=== PATIENT | female | born 2000 | race Caucasian/White ===

== ENCOUNTER 2018-11-24 08:08 | Inpatient (IN) | payer OTHER ==
[~2018-11-24 08:08] MED LIST: Bupivacaine 0.25% 10 ML SDV ONE
[2018-11-24] MEDS ORDERED: Nalbuphine 10 MG/1 ML Vial IVPUSH PRN (09:01)
[2018-11-24] MEDS ORDERED: Ondansetron 4 MG/2 ML SDV IVPUSH PRN ×2 (09:01→09:51)
[2018-11-24] MEDS ORDERED: Sodium Chloride 0.9% 10 ML Syringe FLUSH PRN (09:01)
[2018-11-24] MEDS ORDERED: Oxytocin/Lactated Ringers 10 UNIT/1,000 ML BAG IV SCH (09:15)
[2018-11-24] MEDS: Lactated Ringers 1,000 ML IV SCH ×5 (09:29→16:31)
[2018-11-24] MEDS ORDERED: fentaNYL 100 MCG/2 ML SDV ONE (09:50)
[2018-11-24] MEDS ORDERED: fentaNYL 100 MCG/2 ML SDV EPIDUR PRN (09:51)
[2018-11-24] MEDS ORDERED: fentaNYL/Bupivacaine in NS PF 2 MCG-0.125% 250 ML Premix EPIDUR PRN (09:51)
[2018-11-24] MEDS ORDERED: ePHEDrine 50 MG/ML SDV IVPUSH PRN (09:51)
--- NOTE | 2018-11-24 09:58 | PCM.PREANE ---
Preanesthetic Assessment - Anesthesia/Transfusion/Family Hx Anesthesia History: Prior Anesthesia Without Reaction Family History of Anesthesia Reaction: No Transfusion History: No Prior Transfusion(s) Intubation History: Unknown - Review of Systems General: No Symptoms Pulmonary: No Symptoms Cardiovascular: No Symptoms Gastrointestinal: No Symptoms (GERD), Nausea, Vomiting Neurological: No Symptoms (Motion sickness) Other: Reports: None - Physical Assessment NPO Status Date: 11/23/18 NPO Status Time: 20:00 Vital Signs: Last Vital Signs Temp 37.1 C 11/24/18 08:22 Pulse 59 L 11/24/18 08:22 Resp 16 11/24/18 08:22 BP 119/72 11/24/18 08:22 Pulse Ox 100 11/24/18 08:22 Height: 1.7 m Weight: 89.811 kg ASA Class: 2 Mental Status: Alert & Oriented x3 Airway Class: Mallampati = 2 Dentition: Reports: Normal Dentition, Caries Thyro-Mental Finger Breadths: 3 Mouth Opening Finger Breadths: 3 ROM/Head Extension: Full Lungs: Clear to Auscultation, Normal Respiratory Effort Cardiovascular: Regular Rate, Regular Rhythm, No Murmurs - Lab Values: Laboratory Last Values WBC 15.79 K/mm3 (3.98-10.04) H 11/24/18 09:19 RBC 4.38 M/mm3 (3.98-5.22) 11/24/18 09:19 Hgb 12.1 gm/dl (11.2-15.7) 11/24/18 09:19 Hct 37.3 % (34.1-44.9) 11/24/18 09:19 MCV 85.2 fl (79.4-94.8) 11/24/18 09:19 MCH 27.6 pg (25.6-32.2) 11/24/18 09:19 MCHC 32.4 g/dl (32.2-35.5) 11/24/18 09:19 RDW Std Deviation 41.0 fL (36.4-46.3) 11/24/18 09:19 Plt Count 269 K/mm3 (182-369) 11/24/18 09:19 MPV 9.7 fl (9.4-12.3) 11/24/18 09:19 Membrane Rupture Positive H 11/23/18 08:10 All labs reviewed and noted and within acceptable ranges to proceed with epidural. - Allergies Allergies/Adverse Reactions: Allergies Allergy/AdvReac Type Severity Reaction Status Date / Time No Known Allergies Allergy Verified 11/23/18 09:28 - Anesthesia Plan Pre-Op Medication Ordered: None - Acknowledgements Anesthesia Type Planned: Epidural Pt an Appropriate Candidate for the Planned Anesthesia: Yes Alternatives and Risks of Anesthesia Discussed w Pt/Guardian: Yes Pt/Guardian Understands and Agrees with Anesthesia Plan: Yes PreAnesthesia Questionnaire - HOME MEDS Home Medications: Home Meds Esomeprazole Magnesium [Nexium] 40 mg PO DAILY 11/23/18 [History] Vit No.130/Iron/FA [ Vitamins] 1 each PO DAILY 11/23/18 [ History] - CURRENT (IN HOUSE) MEDS Current Meds: Current Medications Lactated Ringer's (Ringers, Lactated) 1,000 mls @ 100 mls/hr IV ASDIRECTED OMAR Last Admin: 11/24/18 09:29 Dose: 100 mls/hr Oxytocin/Lactated Ringer's (Pitocin In Lr 10 Units/1,000 Ml) 10 unit in 1,000 mls @ 500 mls/hr IV .CONTINUOUS OMAR Oxytocin/Lactated Ringer's (Pitocin In Lr 10 Units/1,000 Ml) 10 unit in 1,000 mls @ 12 mls/hr IV TITRATE OMAR; Protocol Nalbuphine HCl (Nubain) 10 mg IVPUSH Q2H PRN PRN Reason: Pain Ondansetron HCl (Zofran) 4 mg IVPUSH Q4H PRN PRN Reason: Nausea/Vomiting Sodium Chloride (Saline Flush) 10 ml FLUSH ASDIRECTED PRN PRN Reason: Keep Vein Open
--- NOTE | 2018-11-24 11:27 | PCM.LDHP ---
L&D History of Present Illness - General Date of Service: 11/24/18 Admit Problem/Dx: Patient Status Order with Admit Dx/Problem 11/24/18 09:01 Patient Status [ADT] Routine Admission Diagnosis/Problem Admission Diagnosis/Problem Spontaneous rupture of membranes Source of Information: Patient History Limitations: Reports: No Limitations - History of Present Illness Introduction:: Patient is a 18 y/o at 38 6/7 wks who presents with contractions / SROM. Contractions started in early AM. Thinks ROM was around 0630. Contractions rated as a 6/10 on admission - Related Data Allergies/Adverse Reactions: Allergies Allergy/AdvReac Type Severity Reaction Status Date / Time No Known Allergies Allergy Verified 11/23/18 09:28 Home Medications: Home Meds Esomeprazole Magnesium [Nexium] 40 mg PO DAILY 11/23/18 [History] Vit No.130/Iron/FA [ Vitamins] 1 each PO DAILY 11/23/18 [ History] Past Medical History [employer] History: Reports: : 1 Para: 0 LMP (Approximate): - Past Surgical History HEENT Surgical History: Reports: Tonsillectomy Musculoskeletal Surgical History: Reports: Other (See Below) (right thumb) Social & Family History - Family History Family Medical History: Noncontributory - Tobacco Use Smoking Status *Q: Never Smoker Second Hand Smoke Exposure: No - Caffeine Use Caffeine Use: Reports: None - Alcohol Use Alcohol Use History: No - Recreational Drug Use Recreational Drug Use: No H&P Review of Systems - Review of Systems: Review Of Systems: See Below General: Reports: No Symptoms Pulmonary: Reports: No Symptoms Cardiovascular: Reports: No Symptoms Gastrointestinal: Reports: No Symptoms Genitourinary: Reports: No Symptoms Musculoskeletal: Reports: No Symptoms Psychiatric: Reports: No Symptoms Neurological: Reports: No Symptoms L&D Exam - Exam Exam: See Below - Vital Signs Vital Signs: Last Vital Signs Temp 37.1 C 11/24/18 08:22 Pulse 59 L 11/24/18 08:22 Resp 16 11/24/18 08:22 BP 119/72 11/24/18 08:22 Pulse Ox 100 11/24/18 08:22 Weight: 89.811 kg - OB Specific Contraction Intensity: Moderate Movement: Active Heart Tones: Present Heart Tones per Min: 140 Presentation: Vertex - Mccray Score Mccray Score Cervix Position: Midposition Mccray Score Consistency: Soft Mccray Score Effacement: 51-70% Mccray Score Dilation: 1-2 cm Mccray Score Infant's Station: -2 Mccray Score Total: 7 - Exam General: Alert, Oriented, Cooperative Lungs: Clear to Auscultation, Normal Respiratory Effort Cardiovascular: Regular Rate, Regular Rhythm GI/Abdominal Exam: Soft, Non-Tender Genitourinary: Normal external exam Extremities: Normal Inspection Skin: Warm, Dry, Intact - Patient Data Lab Results Last 24 hrs: Laboratory Results - last 24 hr 11/23/18 11/24/18 11/24/18 Range/Units 08:10 09: 09:19 WBC 15.79 H (3.98-10.04) K/mm3 RBC 4.38 (3.98-5.22) M/mm3 Hgb 12.1 (11.2-15.7) gm/dl Hct 37.3 (34.1-44.9) % MCV 85.2 (79.4-94.8) fl MCH 27.6 (25.6-32.2) pg MCHC 32.4 (32.2-35.5) g/dl RDW Std Deviation 41.0 (36.4-46.3) fL Plt Count 269 (182-369) K/mm3 MPV 9.7 (9.4-12.3) fl Membrane Rupture Positive H Blood Type O POSITIVE Gel Antibody Screen Negative Result Diagrams: 11/24/18 09:19 - Problem List (1) 38 weeks gestation of SNOMED Code(s): 53871583 ICD Code: Z3A.38 - 38 WEEKS GESTATION OF Status: Acute Current Visit: Yes (2) SROM (spontaneous rupture of membranes) SNOMED Code(s): 768266018 ICD Code: [id number] - Status: Acute Current Visit: Yes Problem List Initiated/Reviewed/Updated: Yes Orders Last 24hrs: Active Orders 24 hr Category Date Time Status Patient Status [ADT] Routine ADT 11/24/18 09:01 Active Activity as Tolerated [RC] PFP Care 11/24/18 09:01 Active Communication Order [RC] ASDIRECTED Care 11/24/18 09:01 Active Heart Tones [RC] ASDIRECTED Care 11/24/18 09:01 Active Non Stress Test [RC] PER UNIT ROUTINE Care 11/24/18 09:01 Active Notify Provider [RC] ASDIRECTED Care 11/24/18 09:51 Active Notify Provider [RC] PFP Care 11/24/18 09:01 Active Notify Provider [RC] PRN Care 11/24/18 09:01 Active Oxygen Therapy [RC] ASDIRECTED Care 11/24/18 09:51 Active Peripheral IV Care [RC] . DIRECTED Care 11/24/18 09:01 Active Pulse Oximetry [RC] ASDIRECTED Care 11/24/18 09:51 Active Vital Signs [RC] PER UNIT ROUTINE Care 11/24/18 09:01 Active Regular Diet [DIET] Diet 11/24/18 Breakfast Active RAPID PLASMA REAGIN,RPR [CHEM] Routine Lab 11/24/18 09:19 Received Bupivicaine/fentaNYL/NS [fentaNYL/Bupivacaine/NS 2 MCG- Med 11/24/18 09:51 Active 0.125% 250 ML] 2 mcg EPIDUR CONTINUOUS PRN Lactated Ringers [Ringers, Lactated] 1,000 ml Med 11/24/18 09:15 Active IV ASDIRECTED Nalbuphine [Nubain] Med 11/24/18 09:01 Active 10 mg IVPUSH Q2H PRN Ondansetron [Zofran] Med 11/24/18 09:51 Active 4 mg IVPUSH ONETIME PRN Ondansetron [Zofran] Med 11/24/18 09:01 Active 4 mg IVPUSH Q4H PRN Oxytocin/Lactated Ringers [Pitocin in LR 10 Units/1,000 Med 11/24/18 09:15 Active ML] 10 unit in 1,000 ml IV .CONTINUOUS Oxytocin/Lactated Ringers [Pitocin in LR 10 Units/1,000 Med 11/24/18 09:15 Active ML] 10 unit in 1,000 ml IV TITRATE Sodium Chloride 0.9% [Saline Flush] Med 11/24/18 09:01 Active 10 ml FLUSH ASDIRECTED PRN ePHEDrine [ePHEDrine sulfate] Med 11/24/18 09:51 Active 5 mg IVPUSH ASDIRECTED PRN fentaNYL [Sublimaze] Med 11/24/18 09:51 Active 100 mcg EPIDUR Q3H PRN Electronic Heart Tones Ext w TOCO [WOMSER] Oth 11/24/18 09:01 Ordered Routine Electronic Heart Tones Internal [WOMSER] Per Unit Oth 11/24/18 09:01 Ordered Routine Peripheral IV Insertion Adult [OM.PC] Routine Oth 11/24/18 09:01 Ordered Resuscitation Status Routine Resus Stat 11/24/18 09:01 Ordered Medication Orders Ephedrine Sulfate (Ephedrine Sulfate) 5 mg IVPUSH ASDIRECTED PRN PRN Reason: Hypotension Fentanyl (Sublimaze) 100 mcg EPIDUR Q3H PRN PRN Reason: Pain Last Admin: 11/24/18 09:54 Dose: 100 mcg Fentanyl/Bupivacaine HCl (Fentanyl/Bupivacaine/Ns 2 Mcg-0.125% 250 Ml) 2 mcg EPIDUR CONTINUOUS PRN PRN Reason: Pain Last Admin: 11/24/18 09:58 Dose: 2 mcg Lactated Ringer's (Ringers, Lactated) 1,000 mls @ 100 mls/hr IV ASDIRECTED OMAR Last Admin: 11/24/18 10:02 Dose: 100 mls/hr Infusion: 11/24/18 10:02 Dose: 100 mls/hr Admin: 11/24/18 09:29 Dose: 100 mls/hr Oxytocin/Lactated Ringer's (Pitocin In Lr 10 Units/1,000 Ml) 10 unit in 1,000 mls @ 500 mls/hr IV .CONTINUOUS OMAR Oxytocin/Lactated Ringer's (Pitocin In Lr 10 Units/1,000 Ml) 10 unit in 1,000 mls @ 12 mls/hr IV TITRATE OMAR; Protocol Nalbuphine HCl (Nubain) 10 mg IVPUSH Q2H PRN PRN Reason: Pain Ondansetron HCl (Zofran) 4 mg IVPUSH Q4H PRN PRN Reason: Nausea/Vomiting Ondansetron HCl (Zofran) 4 mg IVPUSH ONETIME PRN PRN Reason: Nausea/Vomiting Sodium Chloride (Saline Flush) 10 ml FLUSH ASDIRECTED PRN PRN Reason: Keep Vein Open Assessment/Plan Comment:: * Labs ordered * GBS negative, no need for antibiotics * Pain management per patient preference, has already received epidural * 1 cm on admission, will start pitocin as needed for augmentation * Anticipate
[2018-11-24] MEDS: Oxytocin/Lactated Ringers 10 UNIT/1,000 ML BAG IV SCH ×2 (11:30→16:57)
[2018-11-24] MEDS ORDERED: Ampicillin 2 GM AdvVial IV ONE (15:55)
[2018-11-24] MEDS ORDERED: Sodium Chloride 0.9% 100 ML ONE (15:55)
[2018-11-24] MEDS ORDERED: Ampicillin 2 GM in Sodium Chloride 0.9% 100 ML IV ONE (16:00)
[2018-11-24] MEDS ORDERED: Acetaminophen 325 MG Tab PO ONE (16:13)
[2018-11-24] MEDS ORDERED: Gentamicin 110 MG in Sodium Chloride 0.9% 100 ML IV SCH (16:30)
--- NOTE | 2018-11-24 19:29 | PCM.DEL ---
L & D Note - General Info Date of Service: 11/24/18 - Delivery Note Labor: Augmented by Oxytocin Delivery Outcome: Livebirth Delivery Method: Spontaneous Vaginal Delivery-Single Delivery Mode: Spontaneous Presentation: Left Occiput Anterior (JERED) Nuchal Cord: Present, Reduced Anesthesia Type: Epidural Amniotic Fluid Description: Clear Episiotomy Type: None Laceration: 2nd Degree, Perineal Suture type: Vicryl Suture size: 2-0 Placenta: Intact, Spontaneous Cord: 3 Vessels Estimated Blood Loss: 200 Resuscitation Needed: Yes [place]: Bulb Syringe, Stimulated, Warmed, [place] Used, Warmer Used Delivery Comments (Free Text/Narrative):: Patient found to be complete and began pushing. With maternal pushing effort head delivered from an JERED presentation. Nuchal cord present and reduced. With gentle downward traction the shoulders and body delivered. Infant placed on maternal abdomen. Cord clamped and cut. Cord blood obtained. Placenta allowed time to separate and expelled intact. Inspection of perineum showed a 2nd degree laceration which was repaired with a 2-0 vicryl in the typical fashion - General Info Date of Service: 11/24/18 - Patient Data Vitals - Most Recent: Last Vital Signs Temp 37.1 C 11/24/18 08:22 Pulse 59 L 11/24/18 08:22 Resp 16 11/24/18 08:22 BP 119/72 11/24/18 08:22 Pulse Ox 100 11/24/18 08:22 Weight - Most Recent: 89.811 kg I&O - Last 24 Hours: Intake & Output 11/24/18 11/24/18 11/24/18 06:59 14:59 22:59 Intake Total 1999 Balance 1999 - Problem List & Annotations (1) Chorioamnionitis SNOMED Code(s): 43301969 Code(s): O41.1290 - CHORIOAMNIONITIS, UNSP TRIMESTER, NOT APPLICABLE OR UNSP Status: Acute Current Visit: Yes Qualifiers: Fetus number: single or unspecified fetus Trimester: third trimester Qualified Code(s): O41.1230 - Chorioamnionitis, third trimester, not applicable or unspecified (2) Vaginal delivery SNOMED Code(s): 649608613 Code(s): O80 - ENCOUNTER FOR FULL-TERM UNCOMPLICATED DELIVERY Status: Acute Current Visit: Yes (3) 38 weeks gestation of SNOMED Code(s): 35283654 Code(s): Z3A.38 - 38 WEEKS GESTATION OF Status: Acute Current Visit: Yes (4) SROM (spontaneous rupture of membranes) SNOMED Code(s): 360049420 Code(s): AUK6435 - Status: Acute Current Visit: Yes - Problem List Review Problem List Initiated/Reviewed/Updated: Yes - My Orders Last 24 Hours: My Active Orders 11/24/18 09:01 Activity as Tolerated [RC] PFP Communication Order [RC] ASDIRECTED Heart Tones [RC] ASDIRECTED Notify Provider [RC] PFP Notify Provider [RC] PRN Peripheral IV Care [RC] . DIRECTED Vital Signs [RC] PER UNIT ROUTINE Nalbuphine [Nubain] 10 mg IVPUSH Q2H PRN Ondansetron [Zofran] 4 mg IVPUSH Q4H PRN Sodium Chloride 0.9% [Saline Flush] 10 ml FLUSH ASDIRECTED PRN Electronic Heart Tones Ext w TOCO [WOMSER] Routine Electronic Heart Tones Internal [WOMSER] Per Unit Routine Peripheral IV Insertion Adult [OM.PC] Routine Resuscitation Status Routine 11/24/18 09:15 Lactated Ringers [Ringers, Lactated] 1,000 ml IV ASDIRECTED Oxytocin/Lactated Ringers [Pitocin in LR 10 Units/1,000 ML] 10 unit in 1,000 ml IV .CONTINUOUS Oxytocin/Lactated Ringers [Pitocin in LR 10 Units/1,000 ML] 10 unit in 1,000 ml IV TITRATE 11/24/18 09:19 RAPID PLASMA REAGIN,RPR [CHEM] Routine 11/24/18 12:25 Admission Status [Patient Status] [ADT] Routine 11/24/18 19:27 Patient Status Manage Transfer [TRANSFER] Routine 11/24/18 Breakfast Regular Diet [DIET] - Assessment Assessment:: 18 y/o G1 now P1001 PPD#0 from at 38 6/7 wks - Plan Plan:: * Discontinue antibiotics, monitor closely for continued signs of infection * Routine cares * Encourage breast feeding * Discharge home in 2 days
[2018-11-24] MEDS ORDERED: Docusate Sodium 100 MG Cap PO PRN (20:27)
[2018-11-24] MEDS ORDERED: Witch Hazel Medicated Pads 40/Jar TOP PRN (20:27)
[2018-11-24] MEDS ORDERED: Acetaminophen 325 MG Tab PO PRN (20:27)
[2018-11-24] MEDS ORDERED: Benzocaine/Menthol 20%-0.5% Spray 56 GM Canister TOP PRN (20:27)
[2018-11-24] MEDS: Ibuprofen 600 MG Tab PO PRN (21:00)
--- NOTE | 2018-11-24 21:00 | PCM.SN ---
- Free Text/Narrative Note: 1300 Received call from nursing. Having some repetitive variable decelerations. In to assess patient. a bout 4 cm and 90% effaced. IUPC placed. Will start amnioinfusion. Patient agrees to plan of care. Damaris Fitzgerald MD
--- NOTE | 2018-11-24 21:02 | PCM.SN ---
- Free Text/Narrative Note: 1600 Received call from nursing patient now febrile. Will start Amp and Gentamicin for chorioamnionitis. Variables present, but intermittent. Currently 7 cm. Will adjust pitocin as able. Damaris Fitzgerald MD
[2018-11-25] MEDS: Ibuprofen 600 MG Tab PO PRN ×3 (03:05→20:20)
--- NOTE | 2018-11-25 07:06 | PCM.PNPP ---
- General Info Date of Service: 11/25/18 Functional Status: Reports: Pain Controlled, Tolerating Diet, Ambulating, Urinating - Review of Systems General: Reports: No Symptoms Pulmonary: Reports: No Symptoms Cardiovascular: Reports: No Symptoms Gastrointestinal: Reports: No Symptoms Genitourinary: Reports: No Symptoms Musculoskeletal: Reports: No Symptoms Neurological: Reports: No Symptoms - Patient Data Vital Signs - Most Recent: Last Vital Signs Temp 36.8 C 11/25/18 03:05 Pulse 75 11/25/18 03:05 Resp 16 11/25/18 03:05 BP 115/63 11/25/18 03:05 Pulse Ox 96 11/25/18 03:05 Weight - Most Recent: 89.811 kg I&O - Last 24 Hours: Intake & Output 11/24/18 11/25/18 11/25/18 22:59 06:59 14:59 Intake Total 1000 Balance 1000 Lab Results - Last 24 Hours: Laboratory Results - last 24 hr 11/23/18 11/24/18 11/24/18 Range/Units 08:10 09:19 09:19 WBC 15.79 H (3.98-10.04) K/mm3 RBC 4.38 (3.98-5.22) M/mm3 Hgb 12.1 (11.2-15.7) gm/dl Hct 37.3 (34.1-44.9) % MCV 85.2 (79.4-94.8) fl MCH 27.6 (25.6-32.2) pg MCHC 32.4 (32.2-35.5) g/dl RDW Std Deviation 41.0 (36.4-46.3) fL Plt Count 269 (182-369) K/mm3 MPV 9.7 (9.4-12.3) fl Membrane Rupture Positive H RPR Non-reactive (NONREACTIVE) Blood Type Gel Antibody Screen 11/24/18 Range/Units 09:19 WBC (3.98-10.04) K/mm3 RBC (3.98-5.22) M/mm3 Hgb (11.2-15.7) gm/dl Hct (34.1-44.9) % MCV (79.4-94.8) fl MCH (25.6-32.2) pg MCHC (32.2-35.5) g/dl RDW Std Deviation (36.4-46.3) fL Plt Count (182-369) K/mm3 MPV (9.4-12.3) fl Membrane Rupture RPR (NONREACTIVE) Blood Type O POSITIVE Gel Antibody Screen Negative Med Orders - Current: Current Medications Acetaminophen (Tylenol) 650 mg PO Q4H PRN PRN Reason: mild pain or fever Benzocaine/Menthol (Dermoplast Pain Relief [place]) 0 gm TOP ASDIRECTED PRN PRN Reason: Perineal Comfort Measure Last Admin: 11/24/18 22:06 Dose: 1 canister Docusate Sodium (Colace) 100 mg PO BID PRN PRN Reason: Constipation Ibuprofen (Motrin) 600 mg PO Q6H PRN PRN Reason: Mild pain or fever Last Admin: 11/25/18 03:05 Dose: 600 mg Witch Isis (Tucks) 1 pad TOP ASDIRECTED PRN PRN Reason: Perineal Comfort Measure Last Admin: 11/24/18 22:06 Dose: 1 container Discontinued Medications Acetaminophen (Tylenol) 975 mg PO NOW ONE Stop: 11/24/18 16:14 Last Admin: 11/24/18 16:23 Dose: 975 mg Ampicillin Sodium (Ampicillin) Confirm Administered Dose 2 gm IV .STK-MED ONE Stop: 11/24/18 15:56 Last Admin: 11/24/18 16:00 Dose: 2 gm Ephedrine Sulfate (Ephedrine Sulfate) 5 mg IVPUSH ASDIRECTED PRN PRN Reason: Hypotension Fentanyl (Sublimaze) 100 mcg EPIDUR Q3H PRN PRN Reason: Pain Last Admin: 11/24/18 09:54 Dose: 100 mcg Fentanyl (Sublimaze) Confirm Administered Dose 100 mcg .ROUTE .STK-MED ONE Stop: 11/24/18 09:51 Last Admin: 11/25/18 00:28 Dose: Not Given Fentanyl/Bupivacaine HCl (Fentanyl/Bupivacaine/Ns 2 Mcg-0.125% 250 Ml) 2 mcg EPIDUR CONTINUOUS PRN PRN Reason: Pain Last Admin: 11/24/18 09:58 Dose: 2 mcg Lactated Ringer's (Ringers, Lactated) 1,000 mls @ 100 mls/hr IV ASDIRECTED OMAR Last Admin: 11/24/18 16:31 Dose: 100 mls/hr Oxytocin/Lactated Ringer's (Pitocin In Lr 10 Units/1,000 Ml) 10 unit in 1,000 mls @ 500 mls/hr IV .CONTINUOUS OMAR Oxytocin/Lactated Ringer's (Pitocin In Lr 10 Units/1,000 Ml) 10 unit in 1,000 mls @ 12 mls/hr IV TITRATE OMAR; Protocol Last Titration: 11/24/18 17:18 Dose: 4 munits/min, 24 mls/hr Ampicillin Sodium 2 gm/ Sodium (Chloride) 100 mls @ 200 mls/hr IV NOW ONE Stop: 11/24/18 16:29 Last Admin: 11/24/18 16:00 Dose: 200 mls/hr Sodium Chloride (Normal Saline) Confirm Administered Dose 100 mls @ as directed .ROUTE .STK-MED ONE Stop: 11/24/18 15:56 Last Admin: 11/24/18 16:30 Dose: Not Given Gentamicin Sulfate 450 mg/ (Sodium Chloride) 111.25 mls @ 200 mls/hr IV ONETIME ONE Stop: 11/24/18 16:45 Last Admin: 11/24/18 16:39 Dose: 200 mls/hr Gentamicin Sulfate 110 mg/ (Sodium Chloride) 102.75 mls @ 205.5 mls/hr IV Q8H OMAR Nalbuphine HCl (Nubain) 10 mg IVPUSH Q2H PRN PRN Reason: Pain Ondansetron HCl (Zofran) 4 mg IVPUSH Q4H PRN PRN Reason: Nausea/Vomiting Ondansetron HCl (Zofran) 4 mg IVPUSH ONETIME PRN PRN Reason: Nausea/Vomiting Sodium Chloride (Saline Flush) 10 ml FLUSH ASDIRECTED PRN PRN Reason: Keep Vein Open - Interaction Disposition, : in Room with Family Infant Interaction: Holding Infant Infant Feeding: Attempted ; Nursed Fair/Poor Support Person: Significant Other - Recovery Exam Fundal Tone: Firm Fundal Level: At Umbilicus Fundal Placement: Midline Lochia Amount: Small Lochia Color: Rubra/Red Perineum Description: Other (see below) Other Perinuem Description: 2nd degree with repair Episiotomy/Laceration: Approximated Bladder Status: Voiding Urinary Elimination: Voided - Exam General: Alert, Oriented, Cooperative GI/Abdominal Exam: Soft, Non-Tender Extremities: Normal Inspection Skin: Warm, Dry, Intact - Problem List & Annotations (1) Chorioamnionitis SNOMED Code(s): 79756281 Code(s): O41.1290 - CHORIOAMNIONITIS, UNSP TRIMESTER, NOT APPLICABLE OR UNSP Status: Acute Current Visit: Yes Qualifiers: Fetus number: single or unspecified fetus Trimester: third trimester Qualified Code(s): O41.1230 - Chorioamnionitis, third trimester, not applicable or unspecified (2) Vaginal delivery SNOMED Code(s): 823474035 Code(s): O80 - ENCOUNTER FOR FULL-TERM UNCOMPLICATED DELIVERY Status: Acute Current Visit: Yes (3) 38 weeks gestation of SNOMED Code(s): 42062744 Code(s): Z3A.38 - 38 WEEKS GESTATION OF Status: Acute Current Visit: Yes (4) SROM (spontaneous rupture of membranes) SNOMED Code(s): 279387924 Code(s): XOW0250 - Status: Acute Current Visit: Yes - Problem List Review Problem List Initiated/Reviewed/Updated: Yes - My Orders Last 24 Hours: My Active Orders 11/24/18 09:01 Activity as Tolerated [RC] PFP Communication Order [RC] ASDIRECTED Heart Tones [RC] ASDIRECTED Notify Provider [RC] PFP Notify Provider [RC] PRN Vital Signs [RC] PER UNIT ROUTINE Resuscitation Status Routine 11/24/18 20:27 Activity as Tolerated [RC] PER UNIT ROUTINE Vital Signs [RC] 09,15,21,03 Acetaminophen [Tylenol] 650 mg PO Q4H PRN Benzocaine/Menthol [Dermoplast Pain Relief [place]] See Dose Instructions TOP ASDIRECTED PRN Docusate Sodium [Colace] 100 mg PO BID PRN Ibuprofen [Motrin] 600 mg PO Q6H PRN Witch Isis [Tucks] 1 pad TOP ASDIRECTED PRN Assess Lochia [WOMSER] Per Unit Routine Assess Uterine Involution [WOMSER] Per Unit Routine Breast Pump [WOMSER] Per Unit Routine Heat Therapy [OM.PC] PRN Ice Therapy [OM.PC] Per Unit Routine Perineal Care [OM.PC] Per Unit Routine Peripheral IV Discontinue [OM.PC] Routine Sitz Bath [OM.PC] Per Unit Routine 10/16/19 Dinner Regular Diet [DIET] 11/25/18 20:27 Heat Therapy [OM.PC] PRN - Assessment Assessment:: 18 y/o G1 now P1001 PPD#1 from at 38 6/7 wks - Plan Plan:: * Afebrile overnight. Doing well * Routine cares * Encourage breast feeding * Discharge home tomorrow
--- NOTE | 2018-11-25 08:15 | PCM48HPAN ---
Post Anesthesia Note - EVALUATION WITHIN 48HRS OF ANESTHETIC Vital Signs in Normal Range: Yes Patient Participated in Evaluation: Yes Respiratory Function Stable: Yes Airway Patent: Yes Cardiovascular Function Stable: Yes Hydration Status Stable: Yes Pain Control Satisfactory: Yes Nausea and Vomiting Control Satisfactory: Yes Mental Status Recovered: Yes Vital Signs: Last Vital Signs Temp 36.8 C 11/25/18 03:05 Pulse 75 11/25/18 03:05 Resp 16 11/25/18 03:05 BP 115/63 11/25/18 03:05 Pulse Ox 96 11/25/18 03:05 - COMMENTS/OBSERVATIONS Free Text/Narrative:: Tiarra is up walkin around this morning. She does have some back soreness and rates it as mild. She has no further questions or concerns at this time.
--- NOTE | 2018-11-26 09:01 | PCM.PNPP ---
- General Info Date of Service: 11/26/18 Functional Status: Reports: Pain Controlled, Tolerating Diet, Ambulating, Urinating - Review of Systems General: Reports: No Symptoms Pulmonary: Reports: No Symptoms Cardiovascular: Reports: No Symptoms Gastrointestinal: Reports: No Symptoms Genitourinary: Reports: No Symptoms Musculoskeletal: Reports: No Symptoms Neurological: Reports: No Symptoms - Patient Data Vital Signs - Most Recent: Last Vital Signs Temp 36.7 C 11/25/18 21:45 Pulse 73 11/26/18 02:21 Resp 14 11/26/18 02:21 BP 124/78 11/26/18 02:21 Pulse Ox 97 11/26/18 02:21 Weight - Most Recent: 89.811 kg Med Orders - Current: Current Medications Acetaminophen (Tylenol) 650 mg PO Q4H PRN PRN Reason: mild pain or fever Benzocaine/Menthol (Dermoplast Pain Relief [place]) 0 gm TOP ASDIRECTED PRN PRN Reason: Perineal Comfort Measure Last Admin: 11/24/18 22:06 Dose: 1 canister Docusate Sodium (Colace) 100 mg PO BID PRN PRN Reason: Constipation Last Admin: 11/25/18 15:55 Dose: 100 mg Ibuprofen (Motrin) 600 mg PO Q6H PRN PRN Reason: Mild pain or fever Last Admin: 11/25/18 20:20 Dose: 600 mg Witch Isis (Tucks) 1 pad TOP ASDIRECTED PRN PRN Reason: Perineal Comfort Measure Last Admin: 11/24/18 22:06 Dose: 1 container Discontinued Medications Acetaminophen (Tylenol) 975 mg PO NOW ONE Stop: 11/24/18 16:14 Last Admin: 11/24/18 16:23 Dose: 975 mg Ampicillin Sodium (Ampicillin) Confirm Administered Dose 2 gm IV .STK-MED ONE Stop: 11/24/18 15:56 Last Admin: 11/24/18 16:00 Dose: 2 gm Bupivacaine HCl (Sensorcaine-Mpf 0.25%) 10 ml .ROUTE .STK-MED ONE Stop: 11/24/18 00:01 Ephedrine Sulfate (Ephedrine Sulfate) 5 mg IVPUSH ASDIRECTED PRN PRN Reason: Hypotension Fentanyl (Sublimaze) 100 mcg EPIDUR Q3H PRN PRN Reason: Pain Last Admin: 11/24/18 09:54 Dose: 100 mcg Fentanyl (Sublimaze) Confirm Administered Dose 100 mcg .ROUTE .[facility] ONE Stop: 11/24/18 09:51 Last Admin: 11/25/18 00:28 Dose: Not Given Fentanyl/Bupivacaine HCl (Fentanyl/Bupivacaine/Ns 2 Mcg-0.125% 250 Ml) 2 mcg EPIDUR CONTINUOUS PRN PRN Reason: Pain Last Admin: 11/24/18 09:58 Dose: 2 mcg Lactated Ringer's (Ringers, Lactated) 1,000 mls @ 100 mls/hr IV ASDIRECTED OMAR Last Admin: 11/24/18 16:31 Dose: 100 mls/hr Oxytocin/Lactated Ringer's (Pitocin In Lr 10 Units/1,000 Ml) 10 unit in 1,000 mls @ 500 mls/hr IV .CONTINUOUS OMAR Oxytocin/Lactated Ringer's (Pitocin In Lr 10 Units/1,000 Ml) 10 unit in 1,000 mls @ 12 mls/hr IV TITRATE OMAR; Protocol Last Titration: 11/24/18 17:18 Dose: 4 munits/min, 24 mls/hr Ampicillin Sodium 2 gm/ Sodium (Chloride) 100 mls @ 200 mls/hr IV NOW ONE Stop: 11/24/18 16:29 Last Admin: 11/24/18 16:00 Dose: 200 mls/hr Sodium Chloride (Normal Saline) Confirm Administered Dose 100 mls @ as directed .[facility]TE [facility] ONE Stop: 11/24/18 15:56 Last Admin: 11/24/18 16:30 Dose: Not Given Gentamicin Sulfate 450 mg/ (Sodium Chloride) 111.25 mls @ 200 mls/hr IV ONETIME ONE Stop: 11/24/18 16:45 Last Admin: 11/24/18 16:39 Dose: 200 mls/hr Gentamicin Sulfate 110 mg/ (Sodium Chloride) 102.75 mls @ 205.5 mls/hr IV Q8H OMAR Nalbuphine HCl (Nubain) 10 mg IVPUSH Q2H PRN PRN Reason: Pain Ondansetron HCl (Zofran) 4 mg IVPUSH Q4H PRN PRN Reason: Nausea/Vomiting Ondansetron HCl (Zofran) 4 mg IVPUSH ONETIME PRN PRN Reason: Nausea/Vomiting Sodium Chloride (Saline Flush) 10 ml FLUSH ASDIRECTED PRN PRN Reason: Keep Vein Open - Interaction Disposition, : [place] in Room with Family Interaction: Holding Infant Feeding: Attempted ; Nursed Fair/Poor Support Person: Significant Other - Recovery Exam Fundal Tone: Firm Fundal Level: 1 Fingerbreadths Below Umbilicus Fundal Placement: Midline Lochia Amount: Small Lochia Color: Rubra/Red Perineum Description: Other (see below) Other Perinuem Description: 2nd degree with repair Episiotomy/Laceration: Approximated Bladder Status: Voiding Urinary Elimination: Voided - Exam General: Alert, Oriented, Cooperative GI/Abdominal Exam: Soft, Non-Tender Extremities: Normal Inspection Skin: Warm, Dry, Intact - Problem List & Annotations (1) 38 weeks gestation of SNOMED Code(s): 68594002 Code(s): Z3A.38 - 38 WEEKS GESTATION OF Status: Acute Current Visit: Yes (2) SROM (spontaneous rupture of membranes) SNOMED Code(s): 250583185 Code(s): RLF6552 - Status: Acute Current Visit: Yes (3) Chorioamnionitis SNOMED Code(s): 40520557 Code(s): O41.1290 - CHORIOAMNIONITIS, UNSP TRIMESTER, NOT APPLICABLE OR UNSP Status: Acute Current Visit: Yes Qualifiers: Fetus number: single or unspecified fetus Trimester: third trimester Qualified Code(s): O41.1230 - Chorioamnionitis, third trimester, not applicable or unspecified (4) Vaginal delivery SNOMED Code(s): 257195296 Code(s): O80 - ENCOUNTER FOR FULL-TERM UNCOMPLICATED DELIVERY Status: Acute Current Visit: Yes - Problem List Review Problem List Initiated/Reviewed/Updated: Yes - My Orders Last 24 Hours: My Active Orders 11/25/18 20:27 Heat Therapy [OM.PC] PRN - Assessment Assessment:: 18 y/o G1 now P1001 PPD#2 from at 38 6/7 wks - Plan Plan:: * Routine cares * Encourage breast feeding * Discharge today, although patient will board with baby who got started on IV antibiotics yesterday
--- NOTE | 2018-11-26 09:06 | PCM.DCSUM1 ---
Discharge Summary - Discharge Data Discharge Date: 11/26/18 Discharge Disposition: Home, Self-Care 01 Condition: Good - Referral to Home Health Primary Care Physician: Damaris Fitzgerald MD - Discharge Diagnosis/Problem(s) (1) 38 weeks gestation of SNOMED Code(s): 93792690 ICD Code: Z3A.38 - 38 WEEKS GESTATION OF Status: Acute (2) SROM (spontaneous rupture of membranes) SNOMED Code(s): 682037805 ICD Code: [id number] - Status: Acute (3) Chorioamnionitis SNOMED Code(s): 42187027 ICD Code: O41.1290 - CHORIOAMNIONITIS, UNSP TRIMESTER, NOT APPLICABLE OR UNSP Status: Acute Qualifiers: Fetus number: single or unspecified fetus Trimester: third trimester Qualified Code(s): O41.1230 - Chorioamnionitis, third trimester, not applicable or unspecified (4) Vaginal delivery SNOMED Code(s): 869118169 ICD Code: O80 - ENCOUNTER FOR FULL-TERM UNCOMPLICATED DELIVERY Status: Acute - Patient Summary/Data Complications: None Consults: None Recommended Follow-up Testing/Procedures: [address] Fitzgerald [facility] Course: 18 y/o at 38 6/7 wks presented with SROM. Augmentation with pitocin done. With augmentation she did have stretches of variable decelerations. these were managed with IUPC/amnioinfusion. Made good change to complete dilation. At end of labor course did develop a fever and so was given IV gent and ampicillin. She underwent an uncomplicated . See delivery note. she did well and was discharged on PPD#2 - Patient Instructions Diet: Regular Diet as Tolerated Activity: As Tolerated Activity, Other: Pelvic Rest for 6 weeks Driving: May Drive Today Showering/Bathing: May Shower Showering/Bathing, Other: May Bathe Notify Provider of: Fever, Increased Pain, Swelling and Redness, Drainage, Nausea and/or Vomiting - Discharge Plan *PRESCRIPTION DRUG MONITORING PROGRAM REVIEWED*: Not Applicable *COPY OF PRESCRIPTION DRUG MONITORING REPORT IN PATIENT THOMAS: Not Applicable Home Medications: Home Meds Esomeprazole Magnesium [Nexium] 40 mg PO DAILY 11/23/18 [History] Vit No.130/Iron/FA [ Tablet] 1 each PO DAILY 11/23/18 [History] Docusate Sodium [Colace] 100 mg PO BID PRN cap 11/26/18 [Rx] Ibuprofen [Motrin] 600 mg PO Q6H PRN tablet 11/26/18 [Rx] Patient Handouts: Breast Pumping Tips, and Self-Care, Easy-to- Read, Home Care Instructions for Mom, Vaginal Delivery, Care After Referrals: Damaris Fitzgerald MD [Primary Care Provider] - (3 weeks for check ) - Discharge Summary/Plan Comment DC Time >30 min.: No - Patient Data Vitals - Most Recent: Last Vital Signs Temp 36.7 C 11/25/18 21:45 Pulse 73 11/26/18 02:21 Resp 14 11/26/18 02:21 BP 124/78 11/26/18 02:21 Pulse Ox 97 11/26/18 02:21 Weight - Most Recent: 89.811 kg Med Orders - Current: Current Medications Acetaminophen (Tylenol) 650 mg PO Q4H PRN PRN Reason: mild pain or fever Benzocaine/Menthol (Dermoplast Pain Relief [place]) 0 gm TOP ASDIRECTED PRN PRN Reason: Perineal Comfort Measure Last Admin: 11/24/18 22:06 Dose: 1 canister Docusate Sodium (Colace) 100 mg PO BID PRN PRN Reason: Constipation Last Admin: 11/25/18 15:55 Dose: 100 mg Ibuprofen (Motrin) 600 mg PO Q6H PRN PRN Reason: Mild pain or fever Last Admin: 11/25/18 20:20 Dose: 600 mg Witch Isis (Tucks) 1 pad TOP ASDIRECTED PRN PRN Reason: Perineal Comfort Measure Last Admin: 11/24/18 22:06 Dose: 1 container Discontinued Medications Acetaminophen (Tylenol) 975 mg PO NOW ONE Stop: 11/24/18 16:14 Last Admin: 11/24/18 16:23 Dose: 975 mg Ampicillin Sodium (Ampicillin) Confirm Administered Dose 2 gm IV .STK-MED ONE Stop: 11/24/18 15:56 Last Admin: 11/24/18 16:00 Dose: 2 gm Bupivacaine HCl (Sensorcaine-Mpf 0.25%) 10 ml .ROUTE .STK-MED ONE Stop: 11/24/18 00:01 Ephedrine Sulfate (Ephedrine Sulfate) 5 mg IVPUSH ASDIRECTED PRN PRN Reason: Hypotension Fentanyl (Sublimaze) 100 mcg EPIDUR Q3H PRN PRN Reason: Pain Last Admin: 11/24/18 09:54 Dose: 100 mcg Fentanyl (Sublimaze) Confirm Administered Dose 100 mcg .ROUTE .STK-MED ONE Stop: 11/24/18 09:51 Last Admin: 11/25/18 00:28 Dose: Not Given Fentanyl/Bupivacaine HCl (Fentanyl/Bupivacaine/Ns 2 Mcg-0.125% 250 Ml) 2 mcg EPIDUR CONTINUOUS PRN PRN Reason: Pain Last Admin: 11/24/18 09:58 Dose: 2 mcg Lactated Ringer's (Ringers, Lactated) 1,000 mls @ 100 mls/hr IV ASDIRECTED OMAR Last Admin: 11/24/18 16:31 Dose: 100 mls/hr Oxytocin/Lactated Ringer's (Pitocin In Lr 10 Units/1,000 Ml) 10 unit in 1,000 mls @ 500 mls/hr IV .CONTINUOUS OMAR Oxytocin/Lactated Ringer's (Pitocin In Lr 10 Units/1,000 Ml) 10 unit in 1,000 mls @ 12 mls/hr IV TITRATE OMAR; Protocol Last Titration: 11/24/18 17:18 Dose: 4 munits/min, 24 mls/hr Ampicillin Sodium 2 gm/ Sodium (Chloride) 100 mls @ 200 mls/hr IV NOW ONE Stop: 11/24/18 16:29 Last Admin: 11/24/18 16:00 Dose: 200 mls/hr Sodium Chloride (Normal Saline) Confirm Administered Dose 100 mls @ as directed .ROUTE .[facility] ONE Stop: 11/24/18 15:56 Last Admin: 11/24/18 16:30 Dose: Not Given Gentamicin Sulfate 450 mg/ (Sodium Chloride) 111.25 mls @ 200 mls/hr IV ONETIME ONE Stop: 11/24/18 16:45 Last Admin: 11/24/18 16:39 Dose: 200 mls/hr Gentamicin Sulfate 110 mg/ (Sodium Chloride) 102.75 mls @ 205.5 mls/hr IV Q8H OMAR Nalbuphine HCl (Nubain) 10 mg IVPUSH Q2H PRN PRN Reason: Pain Ondansetron HCl (Zofran) 4 mg IVPUSH Q4H PRN PRN Reason: Nausea/Vomiting Ondansetron HCl (Zofran) 4 mg IVPUSH ONETIME PRN PRN Reason: Nausea/Vomiting Sodium Chloride (Saline Flush) 10 ml FLUSH ASDIRECTED PRN PRN Reason: Keep Vein Open
== END 2018-11-26 15:37 | disposition home or self-care (01) | DRG 807 ==
LOC: JD.OBCHECK 08:08 → JD.OB 08:09 → JD.OBCHECK 09:03 → JD.OB 09:04 → INTOOBSV 09:04 → OBSVTOIN 19:08 → JD.OB 19:09
PROVIDERS: ADMIT Obstetrics & Gynecology; ATTEND Obstetrics & Gynecology
PROC: 10E0XZZ Delivery of Products of Conception, External Approach (ICD-10-PCS; principal; 2018-11-24)
PROC: 0KQM0ZZ Repair Perineum Muscle, Open Approach (ICD-10-PCS; 2018-11-24)
PROC: 10H07YZ Insertion of Other Device into Products of Conception, Via Natural or Artificial Opening (ICD-10-PCS; 2018-11-24)
DX: O41.1230 Chorioamnionitis, third trimester, not applicable or unspecified (principal); Z37.0 Single live birth; O69.81X0 Labor and delivery complicated by cord around neck, without compression, not applicable or unspecified; Z3A.38 38 weeks gestation of pregnancy; O76 Abnormality in fetal heart rate and rhythm complicating labor and delivery; Z79.899 Other long term (current) drug therapy; O70.1 Second degree perineal laceration during delivery
CPT/HCPCS: 01967; 36415; 51701; 59025; 59409; 84112; 85027; 86592; 86850; 86900; 86901; A9270-GY; J0290; J1580; J2590; J3010; J3490; J7030; J7120

== ENCOUNTER 2021-01-14 15:26 | Inpatient (IN) | payer BC ==
[2021-01-14] MEDS ORDERED: Lactated Ringers 1,000 ML ONE (16:26)
[2021-01-14] MEDS ORDERED: Ondansetron 4 MG/2 ML SDV IVPUSH PRN (16:35)
[2021-01-14] MEDS ORDERED: Nalbuphine 10 MG/1 ML Vial IVPUSH PRN (16:35)
[2021-01-14] MEDS ORDERED: Sodium Chloride 0.9% 10 ML Syringe FLUSH PRN (16:35)
--- NOTE | 2021-01-14 16:36 | PCM.LDHP ---
L&D History of Present Illness - General Date of Service: 01/14/21 Admit Problem/Dx: Patient Status Order with Admit Dx/Problem 01/14/21 15:43 Patient Status [ADT] Routine 01/14/21 16:35 Patient Status [ADT] Routine Admission Diagnosis/Problem Admission Diagnosis/Problem Source of Information: Patient History Limitations: Reports: No Limitations - History of Present Illness Introduction:: Patient is a 20 y/o at 39 2/7 wks who presents for labor. Contractions started this PM. Thinks maybe water broke this PM. - Related Data Allergies/Adverse Reactions: Allergies Allergy/AdvReac Type Severity Reaction Status Date / Time No Known Allergies Allergy Verified 01/14/21 15:40 Home Medications: Home Meds Esomeprazole Magnesium [Nexium] 40 mg PO DAILY 11/23/18 [History] Vit No.130/Iron/Folic [ Tablet] 1 each PO DAILY 11/23/18 [History] Docusate Sodium [Colace] 100 mg PO BID PRN cap 11/26/18 [Rx] Ibuprofen [Motrin] 600 mg PO Q6H PRN tablet 11/26/18 [Rx] Past Medical History Gastrointestinal History: Reports: GERD [employer] History: Reports: : 2 Para: 1 LMP (Approximate): - Past Surgical History HEENT Surgical History: Reports: Tonsillectomy Musculoskeletal Surgical History: Reports: Other (See Below) (right thumb) Social & Family History - Family History Family Medical History: No Pertinent Family History - Tobacco Use Tobacco Use Status *Q: Never Tobacco User - Caffeine Use Caffeine Use: Reports: None - Alcohol Use Alcohol Use History: No - Recreational Drug Use Recreational Drug Use: No H&P Review of Systems - Review of Systems: Review Of Systems: See Below General: Reports: No Symptoms Pulmonary: Reports: No Symptoms Cardiovascular: Reports: No Symptoms Gastrointestinal: Reports: Abdominal Pain Genitourinary: Reports: No Symptoms Musculoskeletal: Reports: No Symptoms Psychiatric: Reports: No Symptoms Neurological: Reports: No Symptoms L&D Exam - Exam Exam: See Below - Vital Signs Weight: 91.626 kg - OB Specific Contraction Intensity: Moderate to Strong Movement: Active Heart Tones: Present Heart Tones per Min: 140 Heart Rate (FHR) Variability: Moderate (6-25 bpm) Presentation: Vertex - Mccray Score Mccray Score Cervix Position: Midposition Mccray Score Consistency: Soft Mccray Score Effacement: >80% Mccray Score Dilation: > 5 cm Mccray Score Infant's Station: -2 Mccray Score Total: 10 - Exam General: Alert, Oriented, Cooperative Lungs: Clear to Auscultation, Normal Respiratory Effort Cardiovascular: Regular Rate, Regular Rhythm GI/Abdominal Exam: Soft, Non-Tender Genitourinary: Normal external exam Extremities: Normal Inspection Skin: Warm, Dry, Intact - Problem List (1) 39 weeks gestation of SNOMED Code(s): 01932119 ICD Code: Z3A.39 - 39 WEEKS GESTATION OF Status: Acute Current Visit: Yes Problem List Initiated/Reviewed/Updated: Yes Orders Last 24hrs: Active Orders 24 hr Category Date Time Status Patient Status [ADT] Routine ADT 01/14/21 15:43 Active Patient Status [ADT] Routine ADT 01/14/21 16:35 Ordered Activity as Tolerated [RC] PFP Care 01/14/21 16:35 Ordered Communication Order [RC] ASDIRECTED Care 01/14/21 16:35 Ordered Heart Tones [RC] ASDIRECTED Care 01/14/21 16:35 Ordered Non Stress Test [RC] PER UNIT ROUTINE Care 01/14/21 15:43 Active Notify Provider [RC] PFP Care 01/14/21 16:35 Ordered Notify Provider [RC] PRN Care 01/14/21 16:35 Ordered Peripheral IV Care [RC] . DIRECTED Care 01/14/21 16:35 Ordered Vital Signs [RC] PER UNIT ROUTINE Care 01/14/21 15:43 Active Regular Diet [DIET] Diet 01/14/21 Dinner Ordered CBC W/O DIFF,HEMOGRAM [HEME] Stat Lab 01/14/21 16:35 Ordered CORONAVIRUS COVID-19 JASWINDER [MOLEC] Stat Lab 01/14/21 16:36 Ordered RAPID PLASMA REAGIN,RPR [CHEM] Routine Lab 01/14/21 16:35 Ordered TYPE AND SCREEN [BBK] Stat Lab 01/14/21 16:35 Ordered Lactated Ringers [Ringers, Lactated] 1,000 ml Med 01/14/21 16:45 Ordered IV ASDIRECTED Nalbuphine [Nubain] Med 01/14/21 16:35 Ordered 10 mg IVPUSH Q2H PRN Ondansetron [Zofran] Med 01/14/21 16:35 Ordered 4 mg IVPUSH Q4H PRN Oxytocin/Lactated Ringers [Pitocin in LR 10 Units/1,000 Med 01/14/21 16:45 Ordered ML] 10 unit in 1,000 ml IV .CONTINUOUS Sodium Chloride 0.9% [Saline Flush] Med 01/14/21 16:35 Ordered 10 ml FLUSH ASDIRECTED PRN Electronic Heart Tones Ext w TOCO [WOMSER] Oth 01/14/21 16:35 Ordered Routine Electronic Heart Tones Internal [WOMSER] Per Unit Oth 01/14/21 16:35 Ordered Routine Peripheral IV Insertion Adult [OM.PC] Routine Oth 01/14/21 16:35 Ordered Resuscitation Status Routine Resus Stat 01/14/21 15:43 Ordered Assessment/Plan Comment:: * Labs ordered * GBS negative * Desires epidural * Anticipate
[2021-01-14] MEDS ORDERED: Lactated Ringers 1,000 ML IV SCH (16:45)
[2021-01-14] MEDS ORDERED: Oxytocin/Lactated Ringers 10 UNIT/1,000 ML BAG IV SCH (16:45)
[2021-01-14] MEDS ORDERED: ePHEDrine 50 MG/ML SDV IVPUSH PRN (16:52)
[2021-01-14] MEDS ORDERED: fentaNYL 100 MCG/2 ML SDV EPIDUR PRN (16:52)
[2021-01-14] MEDS ORDERED: diphenhydrAMINE 50 MG/ML SDV IVPUSH PRN (16:52)
[2021-01-14] MEDS ORDERED: Bupivacaine/fentaNYL/NS 100 ML Bag EPIDUR PRN (16:52)
--- NOTE | 2021-01-14 17:03 | PCM.PREANE ---
Preanesthetic Assessment - Procedure Proposed Procedure: Labor epidural - Anesthesia/Transfusion/Family Hx Anesthesia History: Prior Anesthesia Without Reaction Transfusion History: No Prior Transfusion(s) Intubation History: Unknown - Review of Systems General: No Symptoms Pulmonary: No Symptoms Cardiovascular: No Symptoms Gastrointestinal: Abdominal Pain (uterine contractions), Nausea, Vomiting Neurological: No Symptoms Other: Reports: Depression, Anxiety - Physical Assessment NPO Status Date: 01/14/21 NPO Status Time: 11:30 Vital Signs: 124/75 HR 84 96% RA 98.6 RR 22 Height: 1.7 m Weight: 91.626 kg ASA Class: 2 Mental Status: Alert & Oriented x3 Airway Class: Mallampati = 2 Thyro-Mental Finger Breadths: 3 Mouth Opening Finger Breadths: 3 ROM/Head Extension: Full Lungs: Clear to Auscultation, Normal Respiratory Effort Cardiovascular: Regular Rate, Regular Rhythm, No Murmurs - Lab Values: Awaiting for lab results and will proceed if within acceptable limits - Allergies Allergies/Adverse Reactions: Allergies Allergy/AdvReac Type Severity Reaction Status Date / Time No Known Allergies Allergy Verified 01/14/21 15:40 - Acknowledgements Anesthesia Type Planned: Epidural Pt an Appropriate Candidate for the Planned Anesthesia: Yes Alternatives and Risks of Anesthesia Discussed w Pt/Guardian: Yes Pt/Guardian Understands and Agrees with Anesthesia Plan: Yes PreAnesthesia Questionnaire - Past Health History Medical/Surgical History: Denies Medical/Surgical History HEENT History: Reports: None Cardiovascular History: Reports: None Respiratory History: Reports: None Gastrointestinal History: Reports: GERD Genitourinary History: Reports: None [employer] WORK[employer] History: Reports: Musculoskeletal History: Reports: None Neurological History: Reports: None Psychiatric History: Reports: Anxiety, Depression Endocrine/Metabolic History: Reports: None Hematologic History: Reports: None Immunologic History: Reports: None Oncologic (Cancer) History: Reports: None Dermatologic History: Reports: None - Past Surgical History HEENT Surgical History: Reports: Tonsillectomy Musculoskeletal Surgical History: Reports: Other (See Below) (right thumb) - SUBSTANCE USE Tobacco Use Status *Q: Never Tobacco User Tobacco Use Within Last Twelve Months: No Second Hand Smoke Exposure: No Days Per Week of Alcohol Use: 0 Number of Drinks Per Day: 0 Total Drinks Per Week: 0 Recreational Drug Use History: No - HOME MEDS Home Medications: Home Meds Esomeprazole Magnesium [Nexium] 40 mg PO DAILY 10/15/19 [History] Vit No.130/Iron/Folic [ Tablet] 1 each PO DAILY 11/23/18 [History] Docusate Sodium [Colace] 100 mg PO BID PRN cap 11/26/18 [Rx] Ibuprofen [Motrin] 600 mg PO Q6H PRN tablet 11/26/18 [Rx] - CURRENT (IN HOUSE) MEDS Current Meds: Current Medications Diphenhydramine HCl (Diphenhydramine 50 Mg/Ml Sdv) 25 mg IVPUSH Q6H PRN PRN Reason: pruritis Ephedrine Sulfate (Ephedrine 50 Mg/Ml Sdv) 5 mg IVPUSH ASDIRECTED PRN PRN Reason: Hypotension Fentanyl (Fentanyl 100 Mcg/2 Ml Sdv) 100 mcg EPIDUR Q3H PRN PRN Reason: Pain Fentanyl/Bupivacaine HCl (Bupivacaine/Fentanyl/Ns 100 Ml Bag) 100 ml EPIDUR ASDIRECTED PRN PRN Reason: Pain Lactated Ringer's (Ringers, Lactated) 1,000 mls @ 100 mls/hr IV ASDIRECTED OMAR Oxytocin/Lactated Ringer's (Pitocin In Lr 10 Units/1,000 Ml) 10 unit in 1,000 mls @ 500 mls/hr IV .CONTINUOUS OMAR Nalbuphine HCl (Nalbuphine 10 Mg/1 Ml Vial) 10 mg IVPUSH Q2H PRN PRN Reason: Pain Ondansetron HCl (Ondansetron 4 Mg/2 Ml Sdv) 4 mg IVPUSH Q4H PRN PRN Reason: Nausea/Vomiting Sodium Chloride (Sodium Chloride 0.9% 10 Ml Syringe) 10 ml FLUSH ASDIRECTED PRN PRN Reason: Keep Vein Open Discontinued Medications Lactated Ringer's (Ringers, Lactated) Confirm Administered Dose 1,000 mls @ as directed .ROUTE .STK-MED ONE Stop: 01/14/21 16:27
[2021-01-14] MEDS ORDERED: Bupivacaine 0.25% 10 ML SDV ONE (18:00)
--- NOTE | 2021-01-14 20:03 | PCM.DEL ---
L & D Note - General Info Date of Service: 01/14/21 - Delivery Note Labor: Spontaneous Delivery Outcome: Livebirth Delivery Method: Spontaneous Vaginal Delivery-Single Delivery Mode: Spontaneous Presentation: Left Occiput Anterior (JERED) Nuchal Cord: Present (x2), Reduced (x2) Anesthesia Type: Epidural Amniotic Fluid Description: Meconium Stained Episiotomy Type: None Laceration: None Placenta: Intact, Spontaneous Cord: 3 Vessels Estimated Blood Loss: 300 Resuscitation Needed: Yes [place]: Bulb Syringe, Stimulated, Warmed, Drifting Used, Warmer Used Delivery Comments (Free Text/Narrative):: Patient found to be complete and began pushing . With maternal pushing effort head delivered from JERED presentation . Double nuchal present and reduced. With gentle downward traction shoulders and body delivered. Infant placed on maternal abdomen. Cord clamped and cut. Cord blood obtained. Placenta allowed time to separate and expelled intact. Inspection of perineum showed no lacerations - General Info Date of Service: 01/14/21 - Patient Data Vitals - Most Recent: Last Vital Signs Temp 37.0 C 01/14/21 15:43 Pulse 84 01/14/21 15:43 Resp 16 01/14/21 15:43 BP 124/75 01/14/21 15:43 Pulse Ox 96 01/14/21 15:43 Weight - Most Recent: 91.626 kg Med Orders - Current: - Problem List & Annotations (1) 39 weeks gestation of SNOMED Code(s): 50461684 Code(s): Z3A.39 - 39 WEEKS GESTATION OF Status: Acute Current Visit: Yes (2) Vaginal delivery SNOMED Code(s): 635189747 Code(s): O80 - ENCOUNTER FOR FULL-TERM UNCOMPLICATED DELIVERY Status: Acute Current Visit: No - Problem List Review Problem List Initiated/Reviewed/Updated: Yes - My Orders Last 24 Hours: My Active Orders 01/14/21 15:43 Patient Status [ADT] Routine Vital Signs [RC] PER UNIT ROUTINE Resuscitation Status Routine 01/14/21 16:35 Patient Status [ADT] Routine Activity as Tolerated [RC] PFP Communication Order [RC] ASDIRECTED Heart Tones [RC] ASDIRECTED Notify Provider [RC] PFP Notify Provider [RC] PRN Peripheral IV Care [RC] . DIRECTED RAPID PLASMA REAGIN,RPR [CHEM] Routine Nalbuphine [Nubain] 10 mg IVPUSH Q2H PRN Ondansetron [Zofran] 4 mg IVPUSH Q4H PRN Sodium Chloride 0.9% [Saline Flush] 10 ml FLUSH ASDIRECTED PRN Electronic Heart Tones Ext w TOCO [WOMSER] Routine Electronic Heart Tones Internal [WOMSER] Per Unit Routine Peripheral IV Insertion Adult [OM.PC] Routine 01/14/21 16:36 CORONAVIRUS COVID-19 JASWINDER [MOLEC] Stat 01/14/21 16:45 Lactated Ringers [Ringers, Lactated] 1,000 ml IV ASDIRECTED Oxytocin/Lactated Ringers [Pitocin in LR 10 Units/1,000 ML] 10 unit in 1,000 ml IV .CONTINUOUS 01/14/21 Dinner Regular Diet [DIET] - Assessment Assessment:: PPD#0 - Plan Plan:: * Routine cares * Breast feeding * Discharge home in 2 days
[2021-01-14] MEDS ORDERED: Acetaminophen 325 MG Tab PO PRN (20:37)
[2021-01-14] MEDS ORDERED: Docusate Sodium 100 MG Cap PO PRN (20:37)
[2021-01-14] MEDS ORDERED: Witch Hazel Medicated Pads 40/Jar TOP PRN (20:37)
[2021-01-14] MEDS ORDERED: Benzocaine/Menthol 20%-0.5% Spray 78 GM Cannister TOP PRN (20:37)
[2021-01-14] MEDS: Ibuprofen 600 MG Tab PO PRN (22:27)
--- NOTE | 2021-01-15 07:11 | PCM.PNPP ---
- General Info Date of Service: 01/15/21 Functional Status: Reports: Pain Controlled, Tolerating Diet, Ambulating, Urinating - Review of Systems General: Reports: No Symptoms Pulmonary: Reports: No Symptoms Cardiovascular: Reports: No Symptoms Gastrointestinal: Reports: No Symptoms Genitourinary: Reports: No Symptoms Musculoskeletal: Reports: No Symptoms - General Info Date of Service: 01/15/21 - Patient Data Vital Signs - Most Recent: Last Vital Signs Temp 36.7 C 01/15/21 03:49 Pulse 64 01/15/21 03:49 Resp 14 01/15/21 03:49 BP 106/66 01/15/21 03:49 Pulse Ox 98 01/15/21 03:49 Weight - Most Recent: 91.626 kg I&O - Last 24 Hours: Intake & Output 01/14/21 01/15/21 01/15/21 22:59 06:59 14:59 Intake Total 2000 Output Total 1400 Balance 600 Lab Results - Last 24 Hours: Laboratory Results - last 24 hr 01/14/21 01/14/21 01/14/21 Range/Units 16:31 16:51 16:51 WBC 14.82 H (3.98-10.04) K/mm3 RBC 4.25 (3.98-5.22) M/mm3 Hgb 12.2 (11.2-15.7) gm/dl Hct 37.5 (34.1-44.9) % MCV 88.2 D (79.4-94.8) fl MCH 28.7 (25.6-32.2) pg MCHC 32.5 (32.2-35.5) g/dl RDW Std Deviation 45.2 (36.4-46.3) fL Plt Count 253 (182-369) K/mm3 MPV 9.5 (9.4-12.3) fl RPR Non-reactive (NONREACTIVE) Blood Type O POSITIVE Gel Antibody Screen Negative Med Orders - Current: Current Medications Acetaminophen (Acetaminophen 325 Mg Tab) 650 mg PO Q4H PRN PRN Reason: mild pain or fever Benzocaine/Menthol (Benzocaine/Menthol 20%-0.5% [place] 78 Gm Cannister) 0 gm TOP ASDIRECTED PRN PRN Reason: Perineal Comfort Measure Citalopram Hydrobromide (Citalopram 20 Mg Tab) 20 mg PO DAILY ON LICENSE OF [facility] Docusate Sodium (Docusate Sodium 100 Mg Cap) 100 mg PO BID PRN PRN Reason: Constipation Ibuprofen (Ibuprofen 600 Mg Tab) 600 mg PO Q6H PRN PRN Reason: Mild pain or fever Last Admin: 01/14/21 22:27 Dose: 600 mg Documented by: Muna Marinelli (Muna Marinelli Medicated Pads 40/Jar) 1 pad TOP ASDIRECTED PRN PRN Reason: Perineal Comfort Measure Discontinued Medications Diphenhydramine HCl (Diphenhydramine 50 Mg/Ml Sdv) 25 mg IVPUSH Q6H PRN PRN Reason: pruritis Ephedrine Sulfate (Ephedrine 50 Mg/Ml Sdv) 5 mg IVPUSH ASDIRECTED PRN PRN Reason: Hypotension Fentanyl (Fentanyl 100 Mcg/2 Ml Sdv) 100 mcg EPIDUR Q3H PRN PRN Reason: Pain Last Admin: 01/14/21 17:07 Dose: 100 mcg Documented by: Fentanyl/Bupivacaine HCl (Bupivacaine/Fentanyl/Ns 100 Ml Bag) 100 ml EPIDUR ASDIRECTED PRN PRN Reason: Pain Last Admin: 01/14/21 17:07 Dose: 100 ml Documented by: Lactated Ringer's (Ringers, Lactated) Confirm Administered Dose 1,000 mls @ as directed .ROUTE .[facility]-MED ONE Stop: 01/14/21 16:27 Last Admin: 01/14/21 16:40 Dose: 100 mls/hr Documented by: Lactated Ringer's (Ringers, Lactated) 1,000 mls @ 100 mls/hr IV ASDIRECTED OMAR Last Admin: 01/14/21 16:59 Dose: 100 mls/hr Documented by: Oxytocin/Lactated Ringer's (Pitocin In Lr 10 Units/1,000 Ml) 10 unit in 1,000 mls @ 500 mls/hr IV .CONTINUOUS OMAR Last Admin: 01/14/21 19:46 Dose: 500 mls/hr Documented by: Nalbuphine HCl (Nalbuphine 10 Mg/1 Ml Vial) 10 mg IVPUSH Q2H PRN PRN Reason: Pain Ondansetron HCl (Ondansetron 4 Mg/2 Ml Sdv) 4 mg IVPUSH Q4H PRN PRN Reason: Nausea/Vomiting Sodium Chloride (Sodium Chloride 0.9% 10 Ml Syringe) 10 ml FLUSH ASDIRECTED PRN PRN Reason: Keep Vein Open - Interaction Disposition, : in Room with Family Interaction: Holding Infant Infant Feeding: Breastfed ; Nursed Well Support Person: Significant Other - Recovery Exam Fundal Tone: Firm Fundal Level: 1 Fingerbreadths Below Umbilicus Fundal Placement: Midline Lochia Amount: Scant, Small Lochia Color: Rubra/Red Perineum Description: Intact, Minimal Bruising/Swelling Episiotomy/Laceration: None Bladder Status: Voiding Urinary Elimination: Voided - Exam General: Alert, Oriented, Cooperative GI/Abdominal Exam: Soft, Non-Tender - Problem List & Annotations (1) 39 weeks gestation of SNOMED Code(s): 97922470 Code(s): Z3A.39 - 39 WEEKS GESTATION OF Status: Acute Current Visit: Yes (2) Vaginal delivery SNOMED Code(s): 015506118 Code(s): O80 - ENCOUNTER FOR FULL-TERM UNCOMPLICATED DELIVERY Status: Acute Current Visit: No - Problem List Review Problem List Initiated/Reviewed/Updated: Yes - My Orders Last 24 Hours: My Active Orders 01/14/21 Breakfast Regular Diet [DIET] 01/14/21 15:43 Resuscitation Status Routine 01/14/21 20:37 Acetaminophen [TylenoL] 650 mg PO Q4H PRN Benzocaine/Menthol [Dermoplast Pain Relief 20%-0.5% [place]] See Dose Instr uctions TOP ASDIRECTED PRN Docusate Sodium [Colace] 100 mg PO BID PRN Ibuprofen [Motrin] 600 mg PO Q6H PRN witch Edin [Tucks] 1 pad TOP ASDIRECTED PRN Heat Therapy [OM.PC] PRN 01/14/21 20:37 Activity as Tolerated [RC] PER UNIT ROUTINE Vital Signs [RC] ,,, Assess Lochia [WOMSER] Per Unit Routine Assess Uterine Involution [WOMSER] Per Unit Routine Breast Pump [WOMSER] Per Unit Routine Perineal Care [OM.PC] Per Unit Routine Peripheral IV Discontinue [OM.PC] Routine Sitz Bath [OM.PC] Per Unit Routine 01/15/21 09:00 Citalopram [Celexa] 20 mg PO DAILY 01/15/21 20:37 Heat Therapy [OM.BETH] PRN - Assessment Assessment:: PPD#1 - Plan Plan:: * Routine cares * Breast feeding * Discharge home tomorrow
--- NOTE | 2021-01-15 08:06 | PCM48HPAN ---
Post Anesthesia Note - EVALUATION WITHIN 48HRS OF ANESTHETIC Vital Signs in Normal Range: Yes Patient Participated in Evaluation: Yes Respiratory Function Stable: Yes Airway Patent: Yes Cardiovascular Function Stable: Yes Hydration Status Stable: Yes Pain Control Satisfactory: Yes Nausea and Vomiting Control Satisfactory: Yes Mental Status Recovered: Yes Vital Signs: Last Vital Signs Temp 36.7 C 01/15/21 03:49 Pulse 64 01/15/21 03:49 Resp 14 01/15/21 03:49 BP 106/66 01/15/21 03:49 Pulse Ox 98 01/15/21 03:49
[2021-01-15] MEDS: Ibuprofen 600 MG Tab PO PRN ×2 (08:42→16:29)
[2021-01-15] MEDS: Citalopram 20 MG Tab PO SCH (08:42)
--- NOTE | 2021-01-16 07:30 | PCM.PNPP ---
- General Info Date of Service: 01/16/21 Functional Status: Reports: Pain Controlled, Tolerating Diet, Ambulating, Urinating - Review of Systems General: Reports: No Symptoms Pulmonary: Reports: No Symptoms Cardiovascular: Reports: No Symptoms Gastrointestinal: Reports: No Symptoms Genitourinary: Reports: No Symptoms Musculoskeletal: Reports: No Symptoms Neurological: Reports: No Symptoms - General Info Date of Service: 01/16/21 - Patient Data Vital Signs - Most Recent: Last Vital Signs Temp 36.5 C 01/16/21 01:49 Pulse 51 L 01/16/21 01:49 Resp 15 01/16/21 01:49 BP 116/66 01/16/21 01:49 Pulse Ox 95 01/16/21 01:49 Weight - Most Recent: 91.626 kg Med Orders - Current: Current Medications Acetaminophen (Acetaminophen 325 Mg Tab) 650 mg PO Q4H PRN PRN Reason: mild pain or fever Benzocaine/Menthol (Benzocaine/Menthol 20%-0.5% [place] 78 Gm Cannister) 0 gm TOP ASDIRECTED PRN PRN Reason: Perineal Comfort Measure Citalopram Hydrobromide (Citalopram 20 Mg Tab) 20 mg PO DAILY OMAR Last Admin: 01/15/21 08:42 Dose: 20 mg Documented by: Docusate Sodium (Docusate Sodium 100 Mg Cap) 100 mg PO BID PRN PRN Reason: Constipation Ibuprofen (Ibuprofen 600 Mg Tab) 600 mg PO Q6H PRN PRN Reason: Mild pain or fever Last Admin: 01/15/21 16:29 Dose: 600 mg Documented by: Muna Marinelli (Muna Marienlli Medicated Pads 40/Jar) 1 pad TOP ASDIRECTED PRN PRN Reason: Perineal Comfort Measure Discontinued Medications Bupivacaine HCl (Bupivacaine 0.25% 10 Ml Sdv) 10 ml .ROUTE .ST[facility]-MED ONE Stop: 01/14/21 18:01 Diphenhydramine HCl (Diphenhydramine 50 Mg/Ml Sdv) 25 mg IVPUSH Q6H PRN PRN Reason: pruritis Ephedrine Sulfate (Ephedrine 50 Mg/Ml Sdv) 5 mg IVPUSH ASDIRECTED PRN PRN Reason: Hypotension Fentanyl (Fentanyl 100 Mcg/2 Ml Sdv) 100 mcg EPIDUR Q3H PRN PRN Reason: Pain Last Admin: 01/14/21 17:07 Dose: 100 mcg Documented by: Fentanyl/Bupivacaine HCl (Bupivacaine/Fentanyl/Ns 100 Ml Bag) 100 ml EPIDUR ASDIRECTED PRN PRN Reason: Pain Last Admin: 01/14/21 17:07 Dose: 100 ml Documented by: Lactated Ringer's (Ringers, Lactated) Confirm Administered Dose 1,000 mls @ as directed .ROUTE .[facility]-MED ONE Stop: 01/14/21 16:27 Last Admin: 01/14/21 16:40 Dose: 100 mls/hr Documented by: Lactated Ringer's (Ringers, Lactated) 1,000 mls @ 100 mls/hr IV ASDIRECTED OMAR Last Admin: 01/14/21 16:59 Dose: 100 mls/hr Documented by: Oxytocin/Lactated Ringer's (Pitocin In Lr 10 Units/1,000 Ml) 10 unit in 1,000 mls @ 500 mls/hr IV .CONTINUOUS OMAR Last Admin: 01/14/21 19:46 Dose: 500 mls/hr Documented by: Nalbuphine HCl (Nalbuphine 10 Mg/1 Ml Vial) 10 mg IVPUSH Q2H PRN PRN Reason: Pain Ondansetron HCl (Ondansetron 4 Mg/2 Ml Sdv) 4 mg IVPUSH Q4H PRN PRN Reason: Nausea/Vomiting Sodium Chloride (Sodium Chloride 0.9% 10 Ml Syringe) 10 ml FLUSH ASDIRECTED PRN PRN Reason: Keep Vein Open - Infant Interaction Infant Disposition, : [place] in Room with Family Infant Interaction: Holding Infant Infant Feeding: Breastfed Infant; Nursed Well Support Person: Significant Other - Recovery Exam Fundal Tone: Firm Fundal Level: At Umbilicus Fundal Placement: Midline Lochia Amount: Small Lochia Color: Rubra/Red Perineum Description: Intact, Minimal Bruising/Swelling Episiotomy/Laceration: Approximated Bladder Status: Voiding Urinary Elimination: Voided - Exam General: Alert, Oriented, Cooperative GI/Abdominal Exam: Soft, Non-Tender - Problem List & Annotations (1) 39 weeks gestation of SNOMED Code(s): 37684235 Code(s): Z3A.39 - 39 WEEKS GESTATION OF Status: Acute Current Visit: Yes (2) Vaginal delivery SNOMED Code(s): 669988097 Code(s): O80 - ENCOUNTER FOR FULL-TERM UNCOMPLICATED DELIVERY Status: Acute Current Visit: No - Problem List Review Problem List Initiated/Reviewed/Updated: Yes - My Orders Last 24 Hours: My Active Orders 01/15/21 09:00 Citalopram [Celexa] 20 mg PO DAILY 01/15/21 20:37 Heat Therapy [OM.PC] PRN 01/16/21 07:30 Ready for Discharge [RC] PER UNIT ROUTINE - Assessment Assessment:: PPD#2 - Plan Plan:: * Routine cares * Breast feeding * Discharge home today
--- NOTE | 2021-01-16 07:30 | PCM.DCSUM1 ---
Discharge Summary - Discharge Data Discharge Date: 01/16/21 Discharge Disposition: Home, Self-Care 01 Condition: Good - Referral to Home Health Primary Care Physician: Damaris Fitzgerald MD - Discharge Diagnosis/Problem(s) (1) 39 weeks gestation of SNOMED Code(s): 50546790 ICD Code: Z3A.39 - 39 WEEKS GESTATION OF Status: Acute Current Visit: Yes (2) Vaginal delivery SNOMED Code(s): 594522401 ICD Code: O80 - ENCOUNTER FOR FULL-TERM UNCOMPLICATED DELIVERY Status: Acute Current Visit: No - Patient Summary/Data Complications: None Consults: None Recommended Follow-up Testing/Procedures: Follow up in 3 weeks for check Hospital Course: 20 y/o at 39 2/7 wks who presented in labor. Progressed well to complete dilation and underwent an uncomplicated . See delivery note. did well and was discharged home on PPD#2 - Patient Instructions Diet: Regular Diet as Tolerated Activity: As Tolerated Activity, Other: Pelvic rest for 6 weeks Driving: May Drive Today Showering/Bathing: May Shower Showering/Bathing, Other: May Bathe Notify Provider of: Fever, Increased Pain, Swelling and Redness, Drainage, Nausea and/or Vomiting - Discharge Plan *PRESCRIPTION DRUG MONITORING PROGRAM REVIEWED*: No *COPY OF PRESCRIPTION DRUG MONITORING REPORT IN PATIENT THOMAS: No Home Medications: Home Meds Vit No.130/Iron/Folic [ Tablet] 1 each PO DAILY 11/23/18 [History] Escitalopram Oxalate [Lexapro] 10 mg PO DAILY 01/14/21 [History] Acetaminophen [Tylenol] 650 mg PO Q4H PRN tablet 01/15/21 [Rx] Docusate Sodium [Colace] 100 mg PO BID PRN cap 01/15/21 [Rx] Ibuprofen [Motrin] 600 mg PO Q6H PRN tablet 01/15/21 [Rx] Referrals: Damaris Fitzgerald MD [Primary Care Provider] - (3 weeks for check - can be telehealth ) - Discharge Summary/Plan Comment DC Time >30 min.: No Total # of Minutes for Discharge Time: 15 - Patient Data Vitals - Most Recent: Last Vital Signs Temp 36.5 C 01/16/21 01:49 Pulse 51 L 01/16/21 01:49 Resp 15 01/16/21 01:49 BP 116/66 01/16/21 01:49 Pulse Ox 95 01/16/21 01:49 Weight - Most Recent: 91.626 kg Med Orders - Current: Current Medications Acetaminophen (Acetaminophen 325 Mg Tab) 650 mg PO Q4H PRN PRN Reason: mild pain or fever Benzocaine/Menthol (Benzocaine/Menthol 20%-0.5% [place] 78 Gm Cannister) 0 gm TOP ASDIRECTED PRN PRN Reason: Perineal Comfort Measure Citalopram Hydrobromide (Citalopram 20 Mg Tab) 20 mg PO DAILY OMAR Last Admin: 01/15/21 08:42 Dose: 20 mg Documented by: Docusate Sodium (Docusate Sodium 100 Mg Cap) 100 mg PO BID PRN PRN Reason: Constipation Ibuprofen (Ibuprofen 600 Mg Tab) 600 mg PO Q6H PRN PRN Reason: Mild pain or fever Last Admin: 01/15/21 16:29 Dose: 600 mg Documented by: Muna Marinelli (Muna Marinelli Medicated Pads 40/Jar) 1 pad TOP ASDIRECTED PRN PRN Reason: Perineal Comfort Measure Discontinued Medications Bupivacaine HCl (Bupivacaine 0.25% 10 Ml Sdv) 10 ml .ROUTE .STK-MED ONE Stop: 01/14/21 18:01 Diphenhydramine HCl (Diphenhydramine 50 Mg/Ml Sdv) 25 mg IVPUSH Q6H PRN PRN Reason: pruritis Ephedrine Sulfate (Ephedrine 50 Mg/Ml Sdv) 5 mg IVPUSH ASDIRECTED PRN PRN Reason: Hypotension Fentanyl (Fentanyl 100 Mcg/2 Ml Sdv) 100 mcg EPIDUR Q3H PRN PRN Reason: Pain Last Admin: 01/14/21 17:07 Dose: 100 mcg Documented by: Fentanyl/Bupivacaine HCl (Bupivacaine/Fentanyl/Ns 100 Ml Bag) 100 ml EPIDUR ASDIRECTED PRN PRN Reason: Pain Last Admin: 01/14/21 17:07 Dose: 100 ml Documented by: Lactated Ringer's (Ringers, Lactated) Confirm Administered Dose 1,000 mls @ as directed .ROUTE .STK-MED ONE Stop: 01/14/21 16:27 Last Admin: 01/14/21 16:40 Dose: 100 mls/hr Documented by: Lactated Ringer's (Ringers, Lactated) 1,000 mls @ 100 mls/hr IV ASDIRECTED OMAR Last Admin: 01/14/21 16:59 Dose: 100 mls/hr Documented by: Oxytocin/Lactated Ringer's (Pitocin In Lr 10 Units/1,000 Ml) 10 unit in 1,000 mls @ 500 mls/hr IV .CONTINUOUS OMAR Last Admin: 01/14/21 19:46 Dose: 500 mls/hr Documented by: Nalbuphine HCl (Nalbuphine 10 Mg/1 Ml Vial) 10 mg IVPUSH Q2H PRN PRN Reason: Pain Ondansetron HCl (Ondansetron 4 Mg/2 Ml Sdv) 4 mg IVPUSH Q4H PRN PRN Reason: Nausea/Vomiting Sodium Chloride (Sodium Chloride 0.9% 10 Ml Syringe) 10 ml FLUSH ASDIRECTED PRN PRN Reason: Keep Vein Open
[2021-01-16] MEDS: Citalopram 20 MG Tab PO SCH (10:01)
== END 2021-01-16 09:41 | disposition home or self-care (01) | DRG 560 ==
LOC: JD.OBCHECK 15:26 → JD.OB 15:31 → JD.OBCHECK 16:35 → JD.OB 16:58 → OBSVTOIN 19:46 → JD.OB 19:47
PROVIDERS: ADMIT Obstetrics & Gynecology; ATTEND Obstetrics & Gynecology
PROC: 10E0XZZ Delivery of Products of Conception, External Approach (ICD-10-PCS; principal; 2021-01-14)
PROC: 3E0R3BZ Introduction of Anesthetic Agent into Spinal Canal, Percutaneous Approach (ICD-10-PCS; 2021-01-14)
PROC: 00HU33Z Insertion of Infusion Device into Spinal Canal, Percutaneous Approach (ICD-10-PCS; 2021-01-14)
DX: O77.0 Labor and delivery complicated by meconium in amniotic fluid (principal); O69.81X0 Labor and delivery complicated by cord around neck, without compression, not applicable or unspecified; Z3A.39 39 weeks gestation of pregnancy; Z37.0 Single live birth
CPT/HCPCS: 01967; 36415; 51702; 59025; 59409; 85027; 86592; 86850; 86900; 86901; A9270-GY; J2590; J3010; J3490; J7120